=== PATIENT | male | born 1980 | race African-American/Black ===

== ENCOUNTER 2021-03-18 02:28 | Inpatient (IN) | payer OTHER ==
[~2021-03-18] VITALS: Ht 188 cm; Wt 108.2 kg
[~2021-03-18 02:28] MED LIST: BACLOFEN 10MG T10 MG PO; BACLOFEN 20MG T20 MG PO; HYDROCODON-ACE1 EAC4 PO; MEDROL 4MG DOSEP4 MG PO; NAPROXEN500 MG PO; PERCOCET 5-3251 EACH PO
[2021-03-18 03:09] LABS: BASOPHIL 0.2 % (0-2); EOSINOPHIL 0.1 % (0-5); HCT 40.7 % (42.0-52.0); LYMPHOCYTE 26.8 % (15-48); MCHC 34.4 g/dL (32.0-36.0); MCV 87.3 fL (78.0-100.0); MONOCYTE 4.9 % (0-12); MPV 8.6 fL (6.0-9.5); NEUTROPHIL 67.6 % (41-80); NRBC 0; PLT 866 K/uL (150-400); RBC 4.66 M/uL (4.70-6.00); RDW 13.5 % (11.5-14.0); WBC 12.2 K/uL (4.0-10.5)
[2021-03-18 03:17] LABS: ALBUMIN 3.1 g/dL (3.4-5.0); BILIRUBIN - TOTAL 1.1 mg/dL (0.2-1.0); BUN/CREAT RATIO (CALC) 21.5 RATIO; CREATININE 2.19 mg/dL (0.67-1.17); GLOBULIN (CALCULATION) 6.4 g/dL; POTASSIUM 3.4 mmol/L (3.5-5.1); TOTAL PROTEIN 9.5 g/dL (6.4-8.2)
[2021-03-18 04:53] LABS: LACTIC ACID 3.8 mmol/L (0.4-1.9)
[2021-03-18 05:42] LABS: BILIRUBIN NEGATIVE (NEGATIVE); BLOOD NEGATIVE Ery/uL (NEGATIVE); CLARITY CLEAR (CLEAR); COLOR YELLOW (YELLOW); GLUCOSE (U) NORMAL (NORMAL); LEUKOCYTES NEGATIVE Leu/uL (NEGATIVE); NITRITE NEGATIVE (NEGATIVE); PROTEIN 1+ mg/dL (NEGATIVE); SPECIFIC GRAVITY >=1.030 (1.001-1.030); UROBILINOGEN 0.2 mg/dL (0.2-1.0); pH 5.5 (5.0-9.0)
[2021-03-18 05:49] LABS: AMORPHOUS URATES CRYSTALS MODERATE; BACTERIA TRACE
[2021-03-18 08:28] LABS: INR 1.46 (0.9-1.2); PROTHROMBIN TIME 16.8 SECONDS (11.4-13.6)
[2021-03-18 14:03] LABS: HCT 45.4 % (42.0-52.0); HGB 14.8 g/dl (13.2-18.0); MCH 30.2 pg (25.0-31.0); MCHC 32.6 g/dL (32.0-36.0); MPV 8.4 fL (6.0-9.5); RBC 4.9 M/uL (4.70-6.00); RDW 13.9 % (11.5-14.0); WBC 3.2 K/uL (4.0-10.5)
[2021-03-18 14:52] LABS: MCV 92.7 fL (78.0-100.0)
[2021-03-18 14:53] LABS: LACTIC ACID 4.4 mmol/L (0.4-1.9)
[2021-03-18 16:37] LABS: CREATININE 2.59 mg/dL (0.67-1.17); POTASSIUM 4.8 mmol/L (3.5-5.1)
[2021-03-19 05:02] LABS: HCT 36.7 % (42.0-52.0); HGB 11.3 g/dl (13.2-18.0); MCH 30.4 pg (25.0-31.0); MCHC 30.8 g/dL (32.0-36.0); RBC 3.72 M/uL (4.70-6.00); RDW 14.4 % (11.5-14.0)
[2021-03-19 05:03] LABS: MCV 98.7 fL (78.0-100.0); WBC 6.7 K/uL (4.0-10.5)
[2021-03-19 05:08] LABS: LACTIC ACID 4.1 mmol/L (0.4-1.9)
[2021-03-19 05:15] LABS: CREATININE 3.01 mg/dL (0.67-1.17); POTASSIUM 5.5 mmol/L (3.5-5.1)
--- NOTE | 2021-03-19 10:06 | NUR ---
03/19/21 Ongoing emotional support is being provided with the family.
[2021-03-19 13:17] LABS: BUN 45 mg/dL (7-18); BUN/CREAT RATIO (CALC) 14.6 RATIO; CHLORIDE 106 mmol/L (98-107); CO2 (BICARBONATE) 18 mmol/L (21-32); CREATININE 3.09 mg/dL (0.67-1.17); GLUCOSE 145 mg/dL (74-106); POTASSIUM 5.1 mmol/L (3.5-5.1)
--- NOTE | 2021-03-19 15:12 | NUR ---
EMS CALLED FOR TRANSPORT AT 1332, LIFE FLIGHT TEAM UNABLE TO FLY R/T WEATHER. EMS ARRIVED AT APPROX 1410 FOR PATIENT TRANSPORT, REQUESTED RN ACCOMPANY THEM TO [facility]. PATIENT CURRENTLY INTUBATED, SEDATED AND ON PARALYTIC DRIP. THIS RN, DEL RN, PRAVEEN LAMAS AND TWO EMS STAFF TO BEDSIDE TO TRANSFER PATIENT FROM ICU BED TO STRETCHER. ALL LINES AND TUBES SECURED, TWO ABDOMINAL SUCTION SITES UNHOOKED AND SECURED FOR TRANSFER TO THE EMS RIG. TWO TRIPLE PUMPS TRANSPORTED WITH IV MEDICATIONS CONTINUOUSLY INFUSING. EXTRA IV MEDICATIONS SENT WITH RN FOR TRANSPORT. PATIENTS VITALS UPON TRANSPORT FROM ICU FOLLOWS: BP 101/52 (MAP 71), RR 18 ON 70% FIO2 EMS VENTILATOR, HR 135, O2 SAT 95% ON VENT. PATIENT SECURED IN EMS RIG AND PRAVEEN LAMAS GOING WITH EMS CREW TO [facility]
--- NOTE | 2021-03-19 15:14 | NUR ---
03/19/21 Mr. Álvarez was transferred to [facility] via EMS.
== END 2021-03-19 14:48 | disposition other institution (70) | DRG 853 ==
LOC: FER 02:28 → FOR 06:53 → FICU 06:53 → FOR 20:44 → FICU 20:45
PROVIDERS: Emergency Medicine; Hospitalist; ADMIT Student in an Organized Health Care Education/Training Program
PROC: 0W9G0ZZ Drainage of Peritoneal Cavity, Open Approach (ICD-10-PCS; 2021-03-18)
PROC: 3E033XZ Introduction of Vasopressor into Peripheral Vein, Percutaneous Approach (ICD-10-PCS; 2021-03-18)
PROC: 0D1L0Z4 Bypass Transverse Colon to Cutaneous, Open Approach (ICD-10-PCS; principal; 2021-03-18 07:05)
PROC: 5A1935Z Respiratory Ventilation, Less than 24 Consecutive Hours (ICD-10-PCS; 2021-03-19)
DX: A41.9 Sepsis, unspecified organism (principal); R65.21 Severe sepsis with septic shock; K63.1 Perforation of intestine (nontraumatic); K65.8 Other peritonitis; K55.8 Other vascular disorders of intestine; E87.2 Acidosis; N17.9 Acute kidney failure, unspecified; C18.7 Malignant neoplasm of sigmoid colon; K66.8 Other specified disorders of peritoneum; Z20.822 Contact with and (suspected) exposure to COVID-19; G89.29 Other chronic pain; E87.6 Hypokalemia; Z88.6 Allergy status to analgesic agent; Z80.0 Family history of malignant neoplasm of digestive organs; Z98.890 Other specified postprocedural states
CPT/HCPCS: 36415; 36600; 71045; 80048; 80053; 81001; 82803; 83605; 83690; 84484; 85025; 85610; 86850; 86900; 86901; 87040; 87077; 93005; 94002; C9113; J0171; J0610; J1170; J1265; J1720; J1885; J2250; J2270; J2370; J2405; J2543; J2710; J3010; J3480; J7030; J7040; J7060; J7120; P9046; Q9967; U0002